=== PATIENT | female | born 1955 | race Caucasian/White ===

== ENCOUNTER 2020-05-09 10:32 | Observation (INO) | payer MEDICARE, OTHER ==
[~2020-05-09] VITALS: Ht 157.5 cm; Wt 72.8 kg
[2020-05-09] MEDS ORDERED: LORazepam 2 MG/ML, 1ML ONE (10:37)
--- NOTE | 2020-05-09 10:44 | NUR ---
PT W HX ALZHEIMERS DEMENTIA HAD WINTENESSED 30-60 SEC TONIC CLONIC SZ. HAS HX OF EPISODES OF MUSCLE TWITCHING BUT NEVER SEIZURES BEFORE. PER EMS WAS POSTICTAL ON ARRIVAL, NONVERBAL, GARGLING, COULDN'T WALK. NOW [place], 5/5 STRENGTH, SPEKAING WORDS, DOES NOT FOLLOW COMMANDS, SENTENCES MAKE NO SENSE, DAUGHTER ON WAY. DOES NOT HOLD STILL FOR EKG OR BP. TRIES TO GET OOB. 2 MG ATIVAN IM. MANN IN ROOM FOR EVAL. SIDE RAILS X2, SEIZURE PADS. PT PULLING ALL MONITOR CABLES OFF. IN VIEW OF NURSES STN. CTM.
[2020-05-09] MEDS ORDERED: SODIUM CHLORIDE FLUSH 10ML SYR IVF ONE (11:00)
[2020-05-09] MEDS ORDERED: LORazepam 2 MG/ML, 1ML IM ONE (11:00)
[2020-05-09 11:14] LABS: BASOPHILS # (AUTO) 0.02 x10^3/uL (0-0.1); BASOPHILS % (AUTO) 0 % (0-1); EOSINOPHILS # (AUTO) 0.01 x10^3/uL (0-0.4); EOSINOPHILS % (AUTO) 0 % (1-7); LYMPHOCYTES % (AUTO) 22 % (22-44); MD NO; MEAN CORPUSCULAR HEMOGLOBIN 29.5 pg (27.0-34.8); MEAN CORPUSCULAR HGB CONC 33.1 g/dL (32.4-35.8); MEAN PLATELET VOLUME 9.3 fL (7.4-10.4); MONOCYTES # (AUTO) 0.41 x10^3/uL (0.2-0.8); MONOCYTES % (AUTO) 4 % (2-9); NEUTROPHILS # (AUTO) 6.87 x10^3/uL (1.8-6.8); NEUTROPHILS % (AUTO) 73 % (42-75); PLATELET COUNT 273 x10^3/uL (130-400); RED BLOOD COUNT 5.12 x10^6/uL (3.82-5.3); RED CELL DISTRIBUTION WIDTH 13.4 % (9.6-15.2)
[2020-05-09 11:22] LABS: ALANINE AMINOTRANSFERASE 19 U/L (12-78); ALBUMIN 3.4 g/dL (3.4-5.0); ANION GAP 10 mmol/L (5-15); CALCIUM 8.9 mg/dL (8.5-10.1); CHLORIDE 109 mmol/L (98-107); CREATININE 0.98 mg/dL (0.55-1.02)
[2020-05-09 11:24] LABS: ALKALINE PHOSPHATASE 107 U/L (45-117); BILIRUBIN,TOTAL 0.7 mg/dL (0.2-1.0); TOTAL PROTEIN 6.8 g/dL (6.4-8.2)
[2020-05-09] MEDS ORDERED: HALOPERIDOL 5 MG/ML ONE (11:48)
[2020-05-09] MEDS ORDERED: HALOPERIDOL 5 MG/ML IM ONE (12:00)
--- NOTE | 2020-05-09 12:01 | NUR ---
PT MORE CALM FROM ATIVAN BUT WHEN ATTEMPT TO ASSESS BP, WAKES, MOVES, UNCOOPERTAIVE. HALDOL IM TO PREMEDICATE FOR STRAIGHT CATH. DAUGHTER AT BEDSIDE. VSS.
--- NOTE | 2020-05-09 12:31 | NUR ---
back from head ct. as
[2020-05-09] MEDS ORDERED: ACETAMINOPHEN 325 MG TABLET PO PRN (13:00)
[2020-05-09] MEDS ORDERED: ONDANSETRON 2MG/ML, 2ML IVPush PRN (13:00)
[2020-05-09] MEDS ORDERED: POLYETHYLENE GLYCOL 17 GM PACKET PO PRN (13:00)
[2020-05-09] MEDS ORDERED: MEMA10TA PO (13:13)
[2020-05-09] MEDS ORDERED: DONE10TA14 PO (13:14)
[2020-05-09] MEDS ORDERED: QUET25TA5 PO (13:14)
[2020-05-09 14:33] VITALS: BP 122/77
[2020-05-09] MEDS ORDERED: LEVETIRACETAM 500 MG in SODIUM CHLORIDE 0.9% 100 ML IV SCH (16:00)
[2020-05-09] MEDS: VALPROATE SODIUM 250 MG in DEXTROSE 5% 100 ML IV SCH (17:25)
[2020-05-09] MEDS: ENOXAPARIN 40 MG/0.4 ML SQ SCH (17:28)
[2020-05-09 17:46] LABS: MICROSCOPIC AUTO
[2020-05-09 18:07] VITALS: BP 125/80
[2020-05-09 19:17] VITALS: BP 119/70
[2020-05-09] MEDS ORDERED: LEVETIRACETAM 500 MG TABLET PO SCH (21:00)
[2020-05-09] MEDS ORDERED: QUETIAPINE 25MG TABLET PO SCH (21:00)
[2020-05-09] MEDS: MEMANTINE 10MG TABLET PO SCH (22:21)
[2020-05-09] MEDS: NYSTATIN TOPICAL POWDER 15GM TP SCH (22:22)
[2020-05-10 00:28] VITALS: BP 112/73
[2020-05-10] MEDS: VALPROATE SODIUM 250 MG in DEXTROSE 5% 100 ML IV SCH ×2 (04:42→16:30)
[2020-05-10 04:44] VITALS: BP 135/77
[2020-05-10 05:48] LABS: BASOPHILS # (AUTO) 0.03 x10^3/uL (0-0.1); BASOPHILS % (AUTO) 0 % (0-1); EOSINOPHILS # (AUTO) 0.05 x10^3/uL (0-0.4); EOSINOPHILS % (AUTO) 1 % (1-7); LYMPHOCYTES % (AUTO) 33 % (22-44); MD NO; MEAN CORPUSCULAR HEMOGLOBIN 29.5 pg (27.0-34.8); MEAN CORPUSCULAR HGB CONC 33.2 g/dL (32.4-35.8); MEAN PLATELET VOLUME 9.1 fL (7.4-10.4); MONOCYTES # (AUTO) 0.61 x10^3/uL (0.2-0.8); MONOCYTES % (AUTO) 7 % (2-9); NEUTROPHILS # (AUTO) 4.92 x10^3/uL (1.8-6.8); NEUTROPHILS % (AUTO) 59 % (42-75); PLATELET COUNT 239 x10^3/uL (130-400); RED CELL DISTRIBUTION WIDTH 13.5 % (9.6-15.2)
[2020-05-10 05:55] LABS: ANION GAP 6 mmol/L (5-15); CHLORIDE 109 mmol/L (98-107); CREATININE 0.84 mg/dL (0.55-1.02)
[2020-05-10 07:00] VITALS: BP 112/69
[2020-05-10] MEDS ORDERED: SENNA/DOCUSATE TABLET PO SCH (09:00)
[2020-05-10] MEDS ORDERED: DONEPEZIL 10 MG TABLET PO SCH (09:00)
[2020-05-10] MEDS: NYSTATIN TOPICAL POWDER 15GM TP SCH (09:20)
[2020-05-10] MEDS: MEMANTINE 10MG TABLET PO SCH (09:20)
[2020-05-10] MEDS ORDERED: DIVA250T PO (12:28)
[2020-05-10 14:05] VITALS: BP 115/73
[2020-05-10] MEDS: ENOXAPARIN 40 MG/0.4 ML SQ SCH (16:46)
== END 2020-05-10 17:44 | disposition home or self-care (01) ==
LOC: ED 13:04 → INTOOBSV 13:17 → 3N 13:17
PROVIDERS: ADMIT Internal Medicine; ATTEND Internal Medicine
DX: G40.409 Other generalized epilepsy and epileptic syndromes, not intractable, without status epilepticus (principal); G30.9 Alzheimer's disease, unspecified; F02.81 Dementia in other diseases classified elsewhere, unspecified severity, with behavioral disturbance; Z79.899 Other long term (current) drug therapy
CPT/HCPCS: 36415; 70450; 80048; 80053; 81001; 83735; 85025; 92526; 92610; 95819; 96365; 96366; 96372; 99284; G0378; J1630; J1650; J2060